=== PATIENT | male | born 1970 | race Caucasian/White ===

== ENCOUNTER 2021-01-15 15:03 | Outpatient (CLI) | payer BC | END 2021-01-15 15:04 | disposition home or self-care (01) | LOC: BICMAMMO 15:03 | PROVIDERS: ATTEND Orthopaedic Surgery | DX: Z13.820 Encounter for screening for osteoporosis (principal) | CPT/HCPCS: 77080 ==

== ENCOUNTER 2021-08-06 15:35 | Outpatient (CLI) | payer BC | END 2021-08-06 15:36 | disposition home or self-care (01) | LOC: BICRAD 15:35 | PROVIDERS: ATTEND Orthopaedic Surgery | DX: M16.10 Unilateral primary osteoarthritis, unspecified hip (principal); M25.59 Pain in other specified joint | CPT/HCPCS: 72190 ==

== ENCOUNTER 2022-07-11 08:59 | Outpatient (CLI) | payer BC | END 2022-07-11 09:00 | disposition home or self-care (01) | LOC: BICRAD 08:59 | PROVIDERS: ATTEND Orthopaedic Surgery | DX: Z47.1 Aftercare following joint replacement surgery (principal); M16.0 Bilateral primary osteoarthritis of hip; M25.552 Pain in left hip; M25.551 Pain in right hip; Z96.643 Presence of artificial hip joint, bilateral | CPT/HCPCS: 72170 ==

== ENCOUNTER 2023-07-22 14:14 | Outpatient (CLI) | payer BC | END 2023-07-22 14:15 | disposition home or self-care (01) | LOC: BICRAD 14:14 | PROVIDERS: ATTEND Orthopaedic Surgery | DX: Z47.1 Aftercare following joint replacement surgery (principal); M19.09 Primary osteoarthritis, other specified site; M46.1 Sacroiliitis, not elsewhere classified; M47.816 Spondylosis without myelopathy or radiculopathy, lumbar region; Z96.643 Presence of artificial hip joint, bilateral | CPT/HCPCS: 72170 ==

== ENCOUNTER 2025-06-20 13:08 | Outpatient (CLI) | payer BC | END 2025-06-20 13:09 | disposition home or self-care (01) | LOC: BICRAD 13:08 | PROVIDERS: ATTEND Orthopaedic Surgery | DX: Z47.1 Aftercare following joint replacement surgery (principal); Z96.643 Presence of artificial hip joint, bilateral | CPT/HCPCS: 72170 ==